=== PATIENT | male | born 2000 | race Two or more races ===

== ENCOUNTER 2024-01-20 21:28 | Inpatient (IN) | payer MEDICAID, OTHER ==
[~2024-01-20] VITALS: Ht 180.3 cm; Wt 74.3 kg
[2024-01-20 23:20] LABS: Urine Bacteria FEW /hpf (None Seen); Urine Blood 3+ /uL (Negative); Urine Clarity Clear (Clear); Urine Color Colorless (Yellow); Urine Protein, UAD Negative (Negative); Urine Specific Gravity 1.004 (1.001-1.035); Urine Urobilinogen Normal (Negative); Urine WBC 3 /hpf (0 - 3); Urine pH 6.5 (5.0-8.0)
[2024-01-21 01:18] LABS: Basophils # (auto) 0 10 ^3/uL (0-0.2); Basophils % (auto) 0.3 % (0.0-2.0); Eosinophils # (auto) 0.2 10 ^3/uL (0-0.8); Eosinophils % (auto) 2.7 % (0.0-7.0); Hematocrit 42.3 % (41.0-53.0); Hemoglobin 14.3 g/dL (13.5-17.5); Lymphocytes # (auto) 2.9 10 ^3/uL (0.4-5.4); Lymphocytes % (auto) 34.1 % (10.0-50.0); Mean Corpuscular Hgb Conc. 33.8 g/dL (32.0-36.0); Mean Corpuscular Volume 82.7 fL (80.0-100.0); Monocytes # (auto) 0.9 10 ^3/uL (0-1.3); Monocytes % (auto) 10.9 % (0.0-12.0); Neutrophils # (auto) 4.5 10 ^3/uL (1.6-8.6); Red Blood Cells 5.12 10^6/uL (4.5-5.90); Red Cell Distribution Width 12.6 % (11.8-14.3); White Blood Cell 8.6 10^3/uL (4.4-10.8)
[2024-01-21 01:23] LABS: Chloride 109 mmol/L (98-107); Potassium 4.1 mmol/L (3.5-5.1); Sodium 142 mmol/L (136-145)
[2024-01-21 01:24] LABS: Anion Gap 4 (5-15); Carbon Dioxide 29 mmol/L (20-30)
[2024-01-21 01:30] LABS: BUN/Creatinine Ratio 11.5 (10.0-20.0); Blood Urea Nitrogen 10 mg/dL (9-23); Glucose 102 mg/dL (74-106)
[2024-01-21] MEDS: cefTRIAXone 1GM/50ML D5W 50 ML IV ONE (05:29)
[2024-01-21] MEDS: metroNIDAZOLE 500MG/100ML 100 ML IV ONE (05:39)
[2024-01-21] MEDS ORDERED: ONDANSETRON HCL 4 MG/2 ML VIAL IV PRN (05:45)
[2024-01-21] MEDS: D5W/SOD CHLO 0.9% 1,000 ML IV SCH (05:47)
[2024-01-21 05:56] VITALS: PULSE 59; PULSE 86; RESP 18; O2SAT 96
[2024-01-21 09:10] VITALS: PULSE 78; RESP 16; O2SAT 97
[2024-01-21 18:50] VITALS: RESP 16
[2024-01-21 19:10] VITALS: BP 112/63; PULSE 61; RESP 16; TEMP 98.2
[2024-01-21 20:00] VITALS: RESP 16; O2SAT 94
[2024-01-21 21:50] VITALS: BP 112/63; PULSE 61; RESP 16; TEMP 98.2; O2SAT 94
[2024-01-22 05:00] VITALS: BP 106/47; PULSE 65; RESP 16; TEMP 98.3; O2SAT 99
[2024-01-22 06:09] LABS: Basophils # (auto) 0 10 ^3/uL (0-0.2); Basophils % (auto) 0.4 % (0.0-2.0); Eosinophils # (auto) 0.2 10 ^3/uL (0-0.8); Eosinophils % (auto) 3.1 % (0.0-7.0); Hematocrit 42.1 % (41.0-53.0); Hemoglobin 14.1 g/dL (13.5-17.5); Lymphocytes # (auto) 2.4 10 ^3/uL (0.4-5.4); Lymphocytes % (auto) 35.3 % (10.0-50.0); Mean Corpuscular Hgb Conc. 33.6 g/dL (32.0-36.0); Mean Corpuscular Volume 83.5 fL (80.0-100.0); Monocytes # (auto) 0.7 10 ^3/uL (0-1.3); Monocytes % (auto) 10.6 % (0.0-12.0); Neutrophils # (auto) 3.5 10 ^3/uL (1.6-8.6); Neutrophils % (auto) 50.6 % (37.0-80.0); Nucleated Red Blood Cells % 0.1 %; Red Blood Cells 5.05 10^6/uL (4.5-5.90); Red Cell Distribution Width 12.2 % (11.8-14.3); White Blood Cell 6.8 10^3/uL (4.4-10.8)
[2024-01-22 06:29] LABS: Alanine Aminotransferase 23 U/L (7-40); Albumin 4.3 g/dL (3.2-4.8); Alkaline Phosphatase 77 U/L (46-116); Anion Gap 6 (5-15); Aspartate Aminotransferase 16 U/L (13-40); BUN/Creatinine Ratio 8.8 (10.0-20.0); Blood Urea Nitrogen 8 mg/dL (9-23); Calcium 9.3 mg/dL (8.5-10.1); Carbon Dioxide 30 mmol/L (20-30); Chloride 109 mmol/L (98-107); Glucose 97 mg/dL (74-106); Potassium 3.9 mmol/L (3.5-5.1); Sodium 145 mmol/L (136-145)
[2024-01-22 06:30] LABS: Bilirubin, Total 0.6 mg/dL (0.2-1.0); Total Protein 6.8 g/dL (5.7-8.2)
[2024-01-22 09:00] VITALS: BP 108/62; PULSE 66; RESP 18; TEMP 97.8; O2SAT 97
[2024-01-22] MEDS: cefTRIAXone 1GM/50ML D5W 50 ML IV SCH (09:22)
== END 2024-01-22 12:20 | disposition home or self-care (01) | DRG 465 ==
LOC: ER 21:28 → OVERFLOW 01-21 05:32 → ER 01-21 05:35 → CENTRAL 01-21 18:40
PROVIDERS: ADMIT Nurse Practitioner; ATTEND Internal Medicine
DX: N20.0 Calculus of kidney (principal); N39.0 Urinary tract infection, site not specified; R31.9 Hematuria, unspecified; Z83.3 Family history of diabetes mellitus
CPT/HCPCS: 36415; 74176; 80048; 80053; 81001; 83605; 85025; 87040; G0378; J3490; J7042